=== PATIENT | female | born 2000 | race Native Hawaiian/Other Pacific Islander ===

== ENCOUNTER 2021-01-19 12:49 | Emergency (ER) | payer OTHER ==
[~2021-01-19] VITALS: Ht 170.2 cm; Wt 56.7 kg
[2021-01-19 13:32] VITALS: BP 101/63; TEMP 97
== END 2021-01-19 14:45 | disposition home or self-care (01) ==
LOC: EDBD 12:49 → ED 12:49
DX: J02.0 Streptococcal pharyngitis (principal); F17.210 Nicotine dependence, cigarettes, uncomplicated
CPT/HCPCS: 99281